=== PATIENT | female | born 1950 | race African-American/Black ===

== ENCOUNTER 2016-10-19 13:25 | Inpatient (IN) | payer MEDICAID, OTHER ==
[~2016-10-19] VITALS: Ht 157.5 cm; Wt 68.0 kg
[~2016-10-19 13:25] MED LIST: BUTA1TAB PO; DILT120C11 PO; ESZO3TAB9 PO; GABA-290 PO; HYDR-3933 PO; HYDR25TA PO; MESA400C PO
[2016-10-19] MEDS ORDERED: IBUPROFEN 600MG TABLET PO STA (14:02)
[2016-10-19] MEDS ORDERED: ALBUTEROL (0.083%) 2.5MG/3ML NEB HHN ONE (14:15)
[2016-10-19 15:24] LABS: BASOPHILS % 0.2 % (0.0-2.0); EOSINOPHILS % 0.1 % (0.0-5.0); HEMATOCRIT. 35.6 % (36.0-48.0); LYMPHOCYTES % 9.6 % (20.0-50.0); MEAN CORPUSCULAR HEMOGLOBIN 28.2 pg (28.0-32.0); MEAN CORPUSCULAR HGB CONC 33.7 g/dL (31.0-37.0); MEAN CORPUSCULAR VOLUME 83.6 fL (81.0-99.0); MEAN PLATELET VOLUME 7.6 fl (7.4-10.4); MONOCYTES % 6.5 % (2.0-8.0); NEUTROPHILS % 83.6 % (40.0-76.0); PLATELET 224 x1000/uL (130-400); RED BLOOD CELL COUNT 4.26 mill/uL (4.2-5.4); RED CELL DISTRIBUTION WIDTH 13.1 % (11.6-14.6); WHITE BLOOD COUNT 16.9 x1000/uL (4.5-11.0)
[2016-10-19 15:36] LABS: ALANINE AMINOTRANSFERASE 33 IU/L (13-61); ALBUMIN 3.1 g/dL (3.4-5.0); ANION GAP 15; CALCIUM 9.1 mg/dL (8.5-10.1); CARBON DIOXIDE 24 mEq/L (21-32); CHLORIDE 91 mEq/L (98-107); INDEX HEMOLYSI 1 (1-3); INDEX ICTERIC 1 (1-4); INDEX LIPEMIC 1 (1-3); LIPASE 75 IU/L (73-393); TROPONIN I < 0.02 ng/mL (0.00-0.04); UREA NITROGEN BLOOD 13 mg/dL (7-21); eGFR > 60 mL/min (>60)
[2016-10-19] MEDS ORDERED: MORPHINE SULFATE 4 MG/ML CPJ (NOT FOR IM USE) IV ONE (15:45)
[2016-10-19] MEDS ORDERED: DILTIAZEM HCL 5MG/ML 5ML VIAL IV ONE (15:45)
[2016-10-19] MEDS ORDERED: ENOXAPARIN 80MG/0.8ML SYR SUBCUT ONE (15:45)
[2016-10-19 15:57] LABS: INR 1.1; PROTHROMBIN TIME 11.6 sec
[2016-10-19] MEDS ORDERED: SODIUM CHLORIDE 0.9% 1,000 ML IV ONE (16:00)
[2016-10-19 16:08] LABS: CLARITY URINE CLOUDY (CLEAR); COLOR URINE DARK YELLOW (YELLOW); GLUCOSE URINE NEGATIVE (NEGATIVE); KETONES URINE TRACE (NEGATIVE); LEUKOCYTE ESTERASE URINE 2+ (NEGATIVE); NITRITE URINE POSITIVE (NEGATIVE); OCCULT BLOOD URINE 3+ (NEGATIVE); PROTEIN URINE 2+ (NEGATIVE); SPECIFIC GRAVITY URINE 1.014 (1.005-1.030)
[2016-10-19] MEDS ORDERED: CEFTRIAXONE 1 G PREMIX 50 ML IV ONE (16:30)
[2016-10-19] MEDS ORDERED: CLONIDINE 0.1MG TABLET PO PRN (16:45)
[2016-10-19] MEDS ORDERED: ONDANSETRON HCL 4MG/2ML VIAL IV PRN (16:45)
[2016-10-19] MEDS ORDERED: HYDROCODONE/ACETAMINOPHEN 5/325MG TABLET PO PRN (16:45)
[2016-10-19] MEDS ORDERED: DIPHENHYDRAMINE 50MG/ML VIAL IV PRN (16:45)
[2016-10-19] MEDS ORDERED: ACETAMINOPHEN 325MG TABLET PO PRN (16:45)
[2016-10-19] MEDS ORDERED: IPRATROPIUM/ALBUTEROL 0.5-3(2.5)MG/3ML NEB INH PRN (16:45)
[2016-10-19 17:00] LABS: BACTERIA URINE 2+; SQUAMOUS EPITHELIAL CELL URINE FEW /lpf (RARE/1+)
[2016-10-19] MEDS ORDERED: LEVOFLOXACIN 500MG PREMIX 100 ML IV ONE (19:00)
[2016-10-19 22:25] VITALS: BP 118/78
[2016-10-19 22:35] VITALS: BP 118/78
[2016-10-20] VITALS: BP 118/78
[2016-10-20] MEDS ORDERED: ZOLPIDEM TARTRATE 5MG TABLET PO PRN (03:30)
[2016-10-20 04:00] VITALS: BP 110/73
[2016-10-20] MEDS: HYDROCODONE/ACETAMINOPHEN 10/325MG TABLET PO PRN ×3 (05:05→21:37)
[2016-10-20 06:23] LABS: BASOPHILS % 0.1 % (0.0-2.0); EOSINOPHILS % 0.2 % (0.0-5.0); LYMPHOCYTES % 8.1 % (20.0-50.0); MEAN CORPUSCULAR HGB CONC 33.5 g/dL (31.0-37.0); MEAN CORPUSCULAR VOLUME 83.6 fL (81.0-99.0); MEAN PLATELET VOLUME 7.8 fl (7.4-10.4); MONOCYTES % 7.1 % (2.0-8.0); NEUTROPHILS % 84.5 % (40.0-76.0); PLATELET 220 x1000/uL (130-400); RED BLOOD CELL COUNT 3.94 mill/uL (4.2-5.4); RED CELL DISTRIBUTION WIDTH 12.7 % (11.6-14.6); WHITE BLOOD COUNT 10.8 x1000/uL (4.5-11.0)
[2016-10-20] MEDS ORDERED: DILTIAZEM HCL 120MG CAPSULE SR 12HR PO SCH ×2 (07:00→08:00)
[2016-10-20 07:20] LABS: ALANINE AMINOTRANSFERASE 59 IU/L (13-61); ALBUMIN 2.7 g/dL (3.4-5.0); ANION GAP 17; CALCIUM 8.5 mg/dL (8.5-10.1); CARBON DIOXIDE 22 mEq/L (21-32); CHLORIDE 96 mEq/L (98-107); INDEX HEMOLYSI 2 (1-3); INDEX ICTERIC 1 (1-4); INDEX LIPEMIC 1 (1-3); UREA NITROGEN BLOOD 9 mg/dL (7-21)
[2016-10-20 07:25] LABS: HDL CHOLESTEROL 31 mg/dL (40-59); LDL CHOLESTEROL 97 mg/dL (5-100); TRIGLYCERIDE 130 mg/dL (0-150); TROPONIN I < 0.02 ng/mL (0.00-0.04); eGFR > 60 mL/min (>60)
[2016-10-20] MEDS: MESALAMINE 400 MG CAPSULE.DR PO SCH ×3 (07:57→17:00)
[2016-10-20 08:00] VITALS: BP 112/80
[2016-10-20] MEDS: HYDROCHLOROTHIAZIDE 25MG TABLET PO SCH (08:00)
[2016-10-20] MEDS: BUTALBITAL/ACETAMINOPHEN/CAFFEINE 50/325/40MG TABLET PO SCH ×2 (08:00→17:39)
[2016-10-20] MEDS: GABAPENTIN 300MG CAPSULE PO SCH ×3 (08:00→17:38)
[2016-10-20] MEDS ORDERED: DILTIAZEM HCL 5MG/ML 5ML VIAL IV NR (09:00)
[2016-10-20] MEDS ORDERED: DILTIAZEM HCL 5MG/ML 5ML VIAL IV PRN (09:30)
[2016-10-20] MEDS ORDERED: DILTIAZEM HCL 240MG ER (24HR) PO SCH ×3 (09:30→21:00)
[2016-10-20 12:00] VITALS: BP 124/71
[2016-10-20] MEDS: ASPIRIN 81MG EC TABLET PO SCH (13:16)
[2016-10-20 16:00] VITALS: BP 125/74
[2016-10-20] MEDS ORDERED: LEVOFLOXACIN 500MG PREMIX 100 ML IV SCH (18:00)
[2016-10-20] MEDS ORDERED: DIGOXIN 250MCG TABLET PO SCH (18:00)
[2016-10-20 20:00] VITALS: BP 109/65
[2016-10-20] MEDS: SOTALOL HCL 80MG TABLET PO SCH (21:00)
[2016-10-21] VITALS: BP 117/70
[2016-10-21 04:00] VITALS: BP 117/76
[2016-10-21] MEDS: HYDROCODONE/ACETAMINOPHEN 10/325MG TABLET PO PRN ×2 (06:29→13:19)
[2016-10-21 08:00] VITALS: BP 100/63
[2016-10-21] MEDS: BUTALBITAL/ACETAMINOPHEN/CAFFEINE 50/325/40MG TABLET PO SCH (09:00)
[2016-10-21] MEDS: MESALAMINE 400 MG CAPSULE.DR PO SCH ×2 (09:00→12:31)
[2016-10-21] MEDS: SOTALOL HCL 80MG TABLET PO SCH (09:00)
[2016-10-21] MEDS: HYDROCHLOROTHIAZIDE 25MG TABLET PO SCH (09:00)
[2016-10-21] MEDS ORDERED: DILTIAZEM HCL 240MG ER (24HR) PO SCH (09:00)
[2016-10-21] MEDS: GABAPENTIN 300MG CAPSULE PO SCH ×2 (09:01→13:19)
[2016-10-21] MEDS: ASPIRIN 81MG EC TABLET PO SCH (09:03)
[2016-10-21 12:07] VITALS: BP 124/84
[2016-10-21] MEDS ORDERED: ENOXAPARIN 40MG/0.4ML SYR SUBCUT SCH (14:00)
[2016-10-21 15:12] VITALS: BP 125/82
== END 2016-10-21 16:00 | disposition home or self-care (01) | DRG 463 ==
LOC: ER 15:17 → 6WST 22:39
PROVIDERS: ADMIT Internal Medicine; ATTEND Internal Medicine
DX: N39.0 Urinary tract infection, site not specified (principal); E87.1 Hypo-osmolality and hyponatremia; I11.9 Hypertensive heart disease without heart failure; I48.0 Paroxysmal atrial fibrillation; E78.00 Pure hypercholesterolemia, unspecified; E78.5 Hyperlipidemia, unspecified; F32.9 Major depressive disorder, single episode, unspecified; F41.9 Anxiety disorder, unspecified; Z88.8 Allergy status to other drugs, medicaments and biological substances
CPT/HCPCS: 36415; 76856; 80053; 80061; 81001; 83690; 83880; 84443; 84484; 85025; 85610; 87040; 87086; 93005; 93306; 94640; 96361; 96365; 96372; 96375; 99285; J0696; J1650; J1956; J2270; J3490; J7030; J7050; J7611

== ENCOUNTER 2017-02-28 07:23 | Day surgery (SDC) | payer MEDICAID ==
[~2017-02-28] VITALS: Ht 160 cm; Wt 62.6 kg
[~2017-02-28 07:23] MED LIST changes: +ESZO3TAB24 PO; -ESZO3TAB9 PO; -HYDR-3933 PO; +HYDR-4009 PO
[2017-02-28 08:17] LABS: BASOPHILS % 0.3 % (0.0-2.0); CARBON DIOXIDE 29 mEq/L (21-32); CHLORIDE 101 mEq/L (98-107); EOSINOPHILS % 1.3 % (0.0-5.0); HEMATOCRIT. 38.7 % (36.0-48.0); LYMPHOCYTES % 41.5 % (20.0-50.0); MEAN CORPUSCULAR HEMOGLOBIN 28.1 pg (28.0-32.0); MEAN CORPUSCULAR VOLUME 83.7 fL (81.0-99.0); MEAN PLATELET VOLUME 7.3 fl (7.4-10.4); MONOCYTES % 5.7 % (2.0-8.0); NEUTROPHILS % 51.2 % (40.0-76.0); PLATELET 277 x1000/uL (130-400); RED BLOOD CELL COUNT 4.63 mill/uL (4.2-5.4); RED CELL DISTRIBUTION WIDTH 12.8 % (11.6-14.6)
[2017-02-28] MEDS ORDERED: IOHEXOL-300 100 ML BOTTLE ONE (08:45)
[2017-02-28] MEDS ORDERED: LIDOCAINE HCL 1% 20ML VIAL (Pyxis) INJ ONE (08:45)
[2017-02-28] MEDS ORDERED: POTASSIUM CHLORIDE INJ 40 MEQ in DEXT 5% WATER 250 ML IV SCH (09:00)
[2017-02-28] MEDS ORDERED: FENTANYL CITRATE/PF 50MCG/ML 2ML VIAL ONE (09:25)
[2017-02-28] MEDS ORDERED: MIDAZOLAM HCL 2 MG/2 ML VIAL ONE ×2 (09:25→10:01)
[2017-02-28] MEDS ORDERED: POTASSIUM CHLORIDE 20MEQ TABLET SR PO SCH (10:30)
[2017-02-28] MEDS ORDERED: POTASSIUM CHLORIDE 20MEQ TABLET SR PO NR (11:16)
[2017-02-28] MEDS ORDERED: HEPARIN SODIUM 1,000 UNIT/1ML VIAL IV ONE (17:04)
== END 2017-02-28 14:00 | disposition home or self-care (01) ==
LOC: CCL 07:23
PROVIDERS: ATTEND Internal Medicine Cardiovascular Disease
DX: I25.10 Atherosclerotic heart disease of native coronary artery without angina pectoris (principal); I25.82 Chronic total occlusion of coronary artery
CPT/HCPCS: 36415; 80048; 85025; 93458; C1769; C1887; C1893; J1644; J2250; J3010; J3480; J3490; J7040; Q9967; J7060

== ENCOUNTER 2017-09-18 14:22 | Emergency (ER) | payer MEDICARE, OTHER ==
[~2017-09-18] VITALS: Ht 167.6 cm; Wt 60.0 kg
[2017-09-18 14:34] VITALS: BP 129/88
== END 2017-09-18 19:30 | disposition left against medical advice (07) ==
LOC: ER 16:32
DX: F41.0 Panic disorder [episodic paroxysmal anxiety] (principal); Z53.21 Procedure and treatment not carried out due to patient leaving prior to being seen by health care provider

== ENCOUNTER 2018-10-04 06:43 | Inpatient (IN) | payer MEDICARE, OTHER ==
[~2018-10-04] VITALS: Ht 160 cm; Wt 67.1 kg
[2018-10-04] MEDS ORDERED: MORPHINE SULFATE 10 MG/ML CPJ IM ONE (08:00)
[2018-10-04] MEDS ORDERED: OXYCODONE HCL/ACETAMINOPHEN 5/325MG TABLET PO ONE (11:30)
[2018-10-04 11:43] LABS: BASOPHILS % 0.4 % (0.0-2.0); EOSINOPHILS % 1.9 % (0.0-5.0); HEMATOCRIT. 35.9 % (36.0-48.0); HEMOGLOBIN. 12.1 g/dL (12.0-16.0); LYMPHOCYTES % 34.9 % (20.0-50.0); MEAN CORPUSCULAR HEMOGLOBIN 28.4 pg (28.0-32.0); MEAN CORPUSCULAR VOLUME 84.5 fL (81.0-99.0); MEAN PLATELET VOLUME 7.4 fl (7.4-10.4); MONOCYTES % 4.9 % (2.0-8.0); NEUTROPHILS % 57.9 % (40.0-76.0); PLATELET 239 x1000/uL (130-400); RED BLOOD CELL COUNT 4.25 mill/uL (4.2-5.4); RED CELL DISTRIBUTION WIDTH 12.9 % (11.6-14.6)
[2018-10-04 11:49] LABS: CHLORIDE 104 mEq/L (98-107)
[2018-10-04] MEDS ORDERED: METHOCARBAMOL 500MG TABLET PO ONE (14:00)
[2018-10-04] MEDS ORDERED: ACETAMINOPHEN 325MG TABLET PO PRN (14:30)
[2018-10-04] MEDS ORDERED: DOCUSATE SODIUM 100MG CAPSULE PO PRN (14:30)
[2018-10-04] MEDS ORDERED: CLONIDINE 0.1MG TABLET PO PRN (14:30)
[2018-10-04] MEDS ORDERED: DIPHENHYDRAMINE 50MG/ML VIAL IV PRN (14:30)
[2018-10-04] MEDS ORDERED: MAGNESIUM/ALUMINUM HYDROXIDE/SIMETHICONE 30ML UDC PO PRN (14:30)
[2018-10-04] MEDS ORDERED: GUAIFENESIN 200MG/10ML SUGAR FREE UDC PO PRN (14:30)
[2018-10-04] MEDS ORDERED: IPRATROPIUM/ALBUTEROL 0.5-3(2.5)MG/3ML NEB INH PRN (14:30)
[2018-10-04] MEDS ORDERED: ONDANSETRON HCL 4MG/2ML INJ IV PRN (14:30)
[2018-10-04] MEDS ORDERED: LORAZEPAM 0.5MG TABLET PO PRN (14:30)
[2018-10-04] MEDS ORDERED: NITROGLYCERIN 0.4MG TABLET SL SL PRN (14:30)
[2018-10-04] MEDS ORDERED: POTASSIUM CHLORIDE 20MEQ TABLET SR PO NR (14:30)
[2018-10-04 16:10] LABS: ETHANOL BLOOD < 10 mg/dL
[2018-10-04 16:13] LABS: LDL CHOLESTEROL 156 mg/dL (5-100)
[2018-10-04 16:15] LABS: HDL CHOLESTEROL 48 mg/dL (40-59)
[2018-10-04 16:16] LABS: T4 FREE 1.01 ng/dL (0.76-1.46)
[2018-10-04] MEDS ORDERED: KETOROLAC 15MG/ML VIAL IV PRN (16:45)
[2018-10-04 17:15] VITALS: BP 147/75
[2018-10-04 17:45] VITALS: BP 147/75
[2018-10-04] MEDS: DILTIAZEM HCL 60MG TABLET PO SCH ×2 (18:00→23:55)
[2018-10-04] MEDS: ENOXAPARIN 40MG/0.4ML SYR SUBCUT SCH (19:10)
[2018-10-04 20:31] VITALS: BP 164/83
[2018-10-04] MEDS: BACLOFEN 10MG TABLET PO SCH (20:46)
[2018-10-04] MEDS: MORPHINE SULFATE 4 MG/ML CPJ (NOT FOR IM USE) IV PRN (20:47)
[2018-10-04] MEDS: FAMOTIDINE 20MG TABLET PO SCH (20:52)
[2018-10-04 21:59] LABS: INR 1.1; PROTHROMBIN TIME 11.2 sec (9.6-11.0)
[2018-10-04] MEDS: ZOLPIDEM TARTRATE 5MG TABLET PO PRN (22:42)
[2018-10-04] MEDS: TRAMADOL 50MG TABLET PO PRN (22:42)
[2018-10-05 00:05] VITALS: BP 164/82
[2018-10-05] MEDS: MORPHINE SULFATE 4 MG/ML CPJ (NOT FOR IM USE) IV PRN ×3 (03:14→13:24)
[2018-10-05 04:14] VITALS: BP 142/90
[2018-10-05] MEDS: DILTIAZEM HCL 60MG TABLET PO SCH ×3 (05:17→18:00)
[2018-10-05] MEDS: BACLOFEN 10MG TABLET PO SCH ×3 (07:00→20:42)
[2018-10-05 08:00] VITALS: BP 150/76
[2018-10-05] MEDS: FAMOTIDINE 20MG TABLET PO SCH ×2 (08:43→21:00)
[2018-10-05] MEDS: TRAMADOL 50MG TABLET PO PRN (08:43)
[2018-10-05 12:11] VITALS: BP 158/89
[2018-10-05] MEDS: GABAPENTIN 300MG CAPSULE PO SCH ×2 (13:14→20:43)
[2018-10-05] MEDS: ENOXAPARIN 40MG/0.4ML SYR SUBCUT SCH (13:14)
[2018-10-05] MEDS: TRIAMCINOLONE ACETONIDE 0.5% OINT 15GM TOP SCH ×2 (14:52→20:43)
[2018-10-05 16:20] VITALS: BP 133/79
[2018-10-05 19:59] VITALS: BP 132/82
[2018-10-05] MEDS: HYDROCODONE/APAP 7.5/325MG 1 TAB TABLET PO PRN (20:43)
[2018-10-05] MEDS: ZOLPIDEM TARTRATE 5MG TABLET PO PRN (23:25)
[2018-10-06 00:02] VITALS: BP 131/73
[2018-10-06 04:00] VITALS: BP 126/76
[2018-10-06] MEDS: DILTIAZEM HCL 60MG TABLET PO SCH ×2 (05:14)
[2018-10-06] MEDS: HYDROCODONE/APAP 7.5/325MG 1 TAB TABLET PO PRN (06:25)
[2018-10-06] MEDS: TRIAMCINOLONE ACETONIDE 0.5% OINT 15GM TOP SCH (06:25)
[2018-10-06] MEDS: BACLOFEN 10MG TABLET PO SCH (06:25)
[2018-10-06] MEDS: GABAPENTIN 300MG CAPSULE PO SCH (06:25)
[2018-10-06 08:00] VITALS: BP 139/81
[2018-10-06] MEDS: FAMOTIDINE 20MG TABLET PO SCH (09:00)
[2018-10-06 10:48] VITALS: BP 139/81
== END 2018-10-06 11:34 | disposition home or self-care (01) | DRG 552 ==
LOC: ER 06:43 → 6EST 13:30 → CANRESERV 14:06 → ENRESERV 14:06 → SUPCPDRO 14:25 → ENRESERV 14:44
PROVIDERS: ADMIT Internal Medicine; ATTEND Internal Medicine
DX: M54.2 Cervicalgia (principal); E78.00 Pure hypercholesterolemia, unspecified; E87.6 Hypokalemia; G89.4 Chronic pain syndrome; I10 Essential (primary) hypertension; I25.10 Atherosclerotic heart disease of native coronary artery without angina pectoris; I48.91 Unspecified atrial fibrillation; M81.0 Age-related osteoporosis without current pathological fracture; Z96.659 Presence of unspecified artificial knee joint; F32.9 Major depressive disorder, single episode, unspecified; R26.2 Difficulty in walking, not elsewhere classified; M79.641 Pain in right hand; Z88.8 Allergy status to other drugs, medicaments and biological substances; Z79.899 Other long term (current) drug therapy
CPT/HCPCS: 36415; 80048; 80061; 80320; 83036; 84439; 84443; 93970; 99285; J1650; J2270; G0480